=== PATIENT | female | born 1935 | race Caucasian/White ===

== ENCOUNTER 2016-10-28 18:48 | Inpatient (IN) | payer MEDICARE, OTHER ==
[2016-10-28] MEDS ORDERED: NORVASC5 M2 PO (20:22)
[2016-10-28] MEDS ORDERED: LIPITOR10 M1 PO (20:22)
[2016-10-28] MEDS ORDERED: ARICEPT5 M1 PO (20:23)
[2016-10-28] MEDS ORDERED: BREO ELLIPTA 11 EAC1 INH (20:23)
[2016-10-28] MEDS ORDERED: LASIX40 M1 PO (20:23)
[2016-10-28] MEDS ORDERED: GLIPIZIDE5 M2 PO (20:24)
[2016-10-28] MEDS ORDERED: HYDRALAZINE HCL50 M1 PO (20:24)
[2016-10-28] MEDS ORDERED: LABETALOL HCL100 M1 PO (20:26)
[2016-10-28] MEDS ORDERED: OMEPRAZOLE20 M3 PO (20:26)
[2016-10-28] MEDS ORDERED: VITAMIN E100 UNI3 (20:27)
[2016-10-28] MEDS ORDERED: VITAMIN C100 M1 PO (20:27)
[2016-10-28 23:24] LABS: ALB/GLOB RATIO 0.8 (0.8-2.0); ALBUMIN 3.4 g/dl (3.5-5.0); ALKALINE PHOSPHATASE 65 U/L (33-138); ALT/SGPT 19 U/L (12-78); ANION GAP 12 mmol/L (0-20); AST/SGOT 14 U/L (10-40); BILIRUBIN,TOTAL 0.4 mg/dl (0-1.5); BLOOD UREA NITROGEN 54 mg/dl (6-24); CALCIUM 9.1 mg/dl (8.5-10.5); CARBON DIOXIDE-VENOUS 29 mmol/L (22-32); CHLORIDE 105 mmol/l (96-110); GLUCOSE 82 mg/dL (70-110); POTASSIUM 3.5 mmol/L (3.7-5.1); SODIUM 142 mmol/L (135-145); eGFR VALUE FOR BLACK 32 mL/Min
[2016-10-28 23:34] LABS: MAGNESIUM 1.5 mg/dl (1.8-2.6); PHOSPHOROUS 3.1 mg/dl (2.5-4.9)
[2016-10-28 23:55] LABS: PROCALCITONIN <0.05 ng/ml (0.05-0.09)
[2016-10-29 05:34] LABS: BASO % 0.3 % (0-2); EOS % 3.5 % (0-7); EOSINOPHIL ABSOLUTE COUNT 0.3 tho/cmm (0.0-0.7); HCT-HEMATOCRIT 33.4 % (34.0-49.0); HGB-HEMOGLOBIN 10.9 gm/dl (12.0-15.5); IMMATURE GRANULOCYTES ABSOLUTE 0.01 tho/cmm (0-0.03); IMMATURE GRANULOCYTES PERCENT 0.1 % (0-0.3); LYMPH % 33.3 % (20-45); LYMPH ABSOLUTE COUNT 2.7 tho/cmm (0.8-4.5); MCH (MEAN CORPUSCULAR HGB) 28.1 pg (28.0-32.0); MCHC MEAN CORPUSCULAR HGB CONC 32.6 % (32.0-36.0); MCV (MEAN CELL VOLUME) 86.1 fl (82.0-96.0); MEAN PLATELET VOLUME 10.2 cmc (9.4-12.4); MONO % 7.5 % (0-12); MONOCYTE ABSOLUTE COUNT 0.6 tho/cmm (0.0-1.2); NEUTROPHIL ABSOLUTE COUNT 4.4 tho/cmm (1.6-8.0); NEUTROPHIL-AUTOMATED 4.4 tho/cmm (1.6-8.0); NEUTROPHILS % 55.3 % (40-80); PLATELET COUNT 369 tho/cmm (150-450); RED BLOOD COUNT 3.88 mil/cmm (4.00-5.20)
[2016-10-29 05:50] LABS: ANION GAP 13 mmol/L (0-20); BLOOD UREA NITROGEN 52 mg/dl (6-24); CARBON DIOXIDE-VENOUS 28 mmol/L (22-32); CHLORIDE 108 mmol/l (96-110); CREATININE 1.64 mg/dl (0.50-1.10); GLUCOSE 87 mg/dL (70-110); POTASSIUM 3.5 mmol/L (3.7-5.1); SODIUM 145 mmol/L (135-145); eGFR VALUE FOR BLACK 34 mL/Min
[2016-10-29 07:14] LABS: CALCIUM 9.1 mg/dl (8.5-10.5)
[2016-10-29] MEDS ORDERED: FENOFIBRATE145 M2 PO (11:41)
[2016-10-30 05:50] LABS: ANION GAP 14 mmol/L (0-20); BLOOD UREA NITROGEN 60 mg/dl (6-24); CARBON DIOXIDE-VENOUS 29 mmol/L (22-32); CHLORIDE 102 mmol/l (96-110); POTASSIUM 3.7 mmol/L (3.7-5.1); SODIUM 141 mmol/L (135-145); eGFR VALUE FOR BLACK 25 mL/Min
[2016-10-30 06:06] LABS: HGB-HEMOGLOBIN 11.1 gm/dl (12.0-15.5); PLATELET COUNT 382 tho/cmm (150-450)
[2016-10-30 06:11] LABS: CREATININE 2.09 mg/dl (0.50-1.10); GLUCOSE 170 mg/dL (70-110)
[2016-10-31 05:11] LABS: ANION GAP 12 mmol/L (0-20); BLOOD UREA NITROGEN 61 mg/dl (6-24); CALCIUM 8.7 mg/dl (8.5-10.5); CARBON DIOXIDE-VENOUS 28 mmol/L (22-32); CHLORIDE 102 mmol/l (96-110); CREATININE 2.06 mg/dl (0.50-1.10); GLUCOSE 163 mg/dL (70-110); POTASSIUM 3.8 mmol/L (3.7-5.1); SODIUM 138 mmol/L (135-145); eGFR VALUE FOR BLACK 26 mL/Min
[2016-11-01 04:33] LABS: HGB-HEMOGLOBIN 11.1 gm/dl (12.0-15.5); PLATELET COUNT 369 tho/cmm (150-450)
[2016-11-01 04:47] LABS: ANION GAP 13 mmol/L (0-20); BLOOD UREA NITROGEN 57 mg/dl (6-24); CALCIUM 8.8 mg/dl (8.5-10.5); CARBON DIOXIDE-VENOUS 28 mmol/L (22-32); CHLORIDE 107 mmol/l (96-110); CREATININE 1.74 mg/dl (0.50-1.10); GLUCOSE 196 mg/dL (70-110); POTASSIUM 4.1 mmol/L (3.7-5.1); SODIUM 144 mmol/L (135-145); eGFR VALUE FOR BLACK 31 mL/Min
[2016-11-01] MEDS ORDERED: LABETALOL HCL100 M1 PO (16:20)
[2016-11-01] MEDS ORDERED: ASPIRIN81 M1 PO (16:57)
== END 2016-11-01 20:25 | disposition home health service (06) | DRG 291 ==
LOC: PCUB 18:48
PROVIDERS: Hospitalist; Registered Nurse; ADMIT Internal Medicine Clinical Cardiac Electrophysiology
PROC: 5A09357 Assistance with Respiratory Ventilation, Less than 24 Consecutive Hours, Continuous Positive Airway Pressure (ICD-10-PCS; principal; 2016-10-28)
DX: I13.0 Hypertensive heart and chronic kidney disease with heart failure and stage 1 through stage 4 chronic kidney disease, or unspecified chronic kidney disease (principal); I50.33 Acute on chronic diastolic (congestive) heart failure; N17.9 Acute kidney failure, unspecified; F03.90 Unspecified dementia, unspecified severity, without behavioral disturbance, psychotic disturbance, mood disturbance, and anxiety; I24.8 Other forms of acute ischemic heart disease; E11.22 Type 2 diabetes mellitus with diabetic chronic kidney disease; I70.1 Atherosclerosis of renal artery; J98.11 Atelectasis; N18.3 Chronic kidney disease, stage 3 (moderate); Z91.81 History of falling; I25.10 Atherosclerotic heart disease of native coronary artery without angina pectoris; J44.9 Chronic obstructive pulmonary disease, unspecified; K21.9 Gastro-esophageal reflux disease without esophagitis; E78.5 Hyperlipidemia, unspecified; M85.80 Other specified disorders of bone density and structure, unspecified site; Z87.891 Personal history of nicotine dependence; D64.9 Anemia, unspecified; I48.0 Paroxysmal atrial fibrillation; R14.0 Abdominal distension (gaseous)
CPT/HCPCS: J0456; J0696; J1650; J1815; J1940; J3475; J7050